=== PATIENT | female | born 1950 | race African-American/Black ===

== ENCOUNTER 2017-08-15 10:49 | Day surgery (SDC) | payer MEDICARE, MEDICAID ==
[2017-08-14 13:02] VITALS: BMI 34.9
[2017-08-15] MEDS ORDERED: Propofol 200 MG/20 ML VIAL ONE (13:14)
--- NOTE | 2017-08-15 17:58 | OP ---
DATE OF PROCEDURE: 08/15/2017 PROCEDURES PERFORMED: Esophagogastroduodenoscopy and colonoscopy. PREOPERATIVE DIAGNOSES: Anemia and history of colon polyps. SURGEON: Kuldeep Bergeorn M.D. OPERATIVE NOTE: Informed consent was obtained from the patient. She was sedated with total intrave nous anesthesia. The bite block was placed and the endoscope was advanced easily to the second port ion of the duodenum and retroflexion was performed in the stomach. The esophagus was normal. The G E junction was normal. The stomach was normal including retroflexed views. The pylorus and first a nd second portions of the duodenum were normal. The patient was turned around. Rectal exam was per formed and was normal. The colonoscope was advanced to the terminal ileum without difficulty. The mucosa of the terminal ileum was normal. The ileocecal valve and appendiceal orifice were clearly i dentified. The preparation quality was excellent. The colonic mucosa was normal throughout. Retro flexed views in the rectum were normal. IMPRESSION: 1. Normal esophagogastroduodenoscopy. 2. Normal colonoscopy. 3. Anemia. Her ferritin is over 300, which indicates that she does not have iron deficiency. Her folic acid was normal. Her B12 was previously normal. 4. History of hyperplastic polyps removed from the colon in the past. She has no polyps on today's exam. RECOMMENDATIONS: 1. Repeat colonoscopy in 10 years. 2. Follow up with Dr. Vergara for further evaluation of the anemia. 3. Follow up in GI clinic as needed.
== END 2017-08-15 14:30 | disposition home or self-care (01) ==
LOC: SDC 10:49
PROVIDERS: ATTEND Internal Medicine Gastroenterology
PROC: 0DJD8ZZ Inspection of Lower Intestinal Tract, Via Natural or Artificial Opening Endoscopic (ICD-10-PCS; principal; 2017-08-15)
PROC: 0DJ08ZZ Inspection of Upper Intestinal Tract, Via Natural or Artificial Opening Endoscopic (ICD-10-PCS; 2017-08-15)
DX: Z12.11 Encounter for screening for malignant neoplasm of colon (principal); D64.9 Anemia, unspecified; E11.9 Type 2 diabetes mellitus without complications; E03.9 Hypothyroidism, unspecified; K21.9 Gastro-esophageal reflux disease without esophagitis; M19.90 Unspecified osteoarthritis, unspecified site; E78.5 Hyperlipidemia, unspecified; F17.210 Nicotine dependence, cigarettes, uncomplicated; Z79.84 Long term (current) use of oral hypoglycemic drugs; Z79.899 Other long term (current) drug therapy; Z88.5 Allergy status to narcotic agent; Z87.19 Personal history of other diseases of the digestive system
CPT/HCPCS: 44376; G0105; J2704

== ENCOUNTER 2018-03-11 14:50 | Outpatient (CLI) | payer MEDICARE, MEDICAID | END 2018-03-11 14:51 | disposition home or self-care (01) | LOC: BICMAMMO 14:50 | PROVIDERS: ATTEND Specialist | DX: Z12.31 Encounter for screening mammogram for malignant neoplasm of breast (principal); Z79.899 Other long term (current) drug therapy | CPT/HCPCS: 77063; 77067 ==

== ENCOUNTER 2018-03-14 10:11 | Outpatient (CLI) | payer MEDICARE, MEDICAID | END 2018-03-14 10:12 | disposition home or self-care (01) | LOC: BICULT 10:11 | PROVIDERS: ATTEND Nurse Practitioner Family | DX: N83.201 Unspecified ovarian cyst, right side (principal); N83.202 Unspecified ovarian cyst, left side | CPT/HCPCS: 76856 ==

== ENCOUNTER 2018-04-08 13:48 | Outpatient (CLI) | payer MEDICARE, MEDICAID | END 2018-04-08 13:49 | disposition home or self-care (01) | LOC: BICULT 13:48 | PROVIDERS: ATTEND Otolaryngology Plastic Surgery within the Head & Neck | DX: E04.2 Nontoxic multinodular goiter (principal) | CPT/HCPCS: 76536 ==

== ENCOUNTER 2018-09-09 16:39 | Emergency (ER) | payer MEDICARE, MEDICAID | END 2018-09-09 17:08 | disposition home or self-care (01) | LOC: ERS 16:39 | DX: M62.838 Other muscle spasm (principal); E78.5 Hyperlipidemia, unspecified; E11.9 Type 2 diabetes mellitus without complications; E03.9 Hypothyroidism, unspecified; E66.9 Obesity, unspecified; K21.9 Gastro-esophageal reflux disease without esophagitis; Z87.891 Personal history of nicotine dependence; Z79.84 Long term (current) use of oral hypoglycemic drugs; Z79.899 Other long term (current) drug therapy | CPT/HCPCS: 99283 ==

== ENCOUNTER 2019-04-02 11:59 | Emergency (ER) | payer MEDICARE, MEDICAID | END 2019-04-02 12:35 | disposition home or self-care (01) | LOC: ERS 11:59 | DX: L25.9 Unspecified contact dermatitis, unspecified cause (principal); E78.5 Hyperlipidemia, unspecified; E66.9 Obesity, unspecified; E11.9 Type 2 diabetes mellitus without complications; E03.9 Hypothyroidism, unspecified; K21.9 Gastro-esophageal reflux disease without esophagitis; Z79.84 Long term (current) use of oral hypoglycemic drugs; Z79.899 Other long term (current) drug therapy; Z87.891 Personal history of nicotine dependence | CPT/HCPCS: 99282 ==

== ENCOUNTER 2019-11-20 10:55 | Outpatient (CLI) | payer MEDICARE, OTHER ==
--- NOTE | 2019-11-20 11:32 | MMO ---
Bilateral MAMMO Bilat Screen [facility]. CLINICAL HISTORY: Patient is 68 years old and is seen for screening. The patient has no family history of breast cancer. The patient has no personal history of cancer. VIEWS: The views performed were: bilateral craniocaudal with tomosynthesis; bilateral mediolateral oblique; and bilateral mediolateral oblique with tomosynthesis. FILMS COMPARED: The present examination has been compared to prior imaging studies performed at [facility] on 10/29/2014, 11/09/2015, 11/28/2016 and 03/11/2018. This study has been interpreted with the assistance of computer-aided detection. MAMMOGRAM FINDINGS: The breasts are almost entirely fat. There are no suspicious masses, suspicious calcifications, or new areas of architectural distortion. IMPRESSION: THERE IS NO MAMMOGRAPHIC EVIDENCE OF MALIGNANCY. A ROUTINE FOLLOW-UP MAMMOGRAM IN 1 YEAR IS RECOMMENDED. THE RESULTS OF THIS EXAM WERE SENT TO THE PATIENT. ACR BI-RADS Category 1 - Negative MAMMOGRAPHY NOTE: 1. A negative mammogram report should not delay a biopsy if a dominant of clinically suspicious mass is present. 2. Approximately 10% to 15% of breast cancers are not detected by mammography. 3. Adenosis and dense breasts may obscure an underlying neoplasm. Reported by: MARTINEZ BARRETO MD Electonically Signed: [id number]
== END 2019-11-20 10:56 | disposition home or self-care (01) ==
LOC: BICMAMMO 10:55
PROVIDERS: ATTEND Specialist
DX: Z12.31 Encounter for screening mammogram for malignant neoplasm of breast (principal)
CPT/HCPCS: 77063; 77067

== ENCOUNTER 2021-01-12 13:31 | Outpatient (CLI) | payer MEDICARE, OTHER, MEDICAID | END 2021-01-12 13:32 | disposition home or self-care (01) | LOC: BICMAMMO 13:31 | PROVIDERS: ATTEND Specialist | DX: Z12.31 Encounter for screening mammogram for malignant neoplasm of breast (principal); M81.0 Age-related osteoporosis without current pathological fracture; M85.852 Other specified disorders of bone density and structure, left thigh | CPT/HCPCS: 77063; 77067; 77080 ==

== ENCOUNTER 2022-11-22 16:38 | Emergency (ER) | payer MEDICARE, OTHER ==
[2022-11-22] MEDS ORDERED: Lidocaine Viscous Sol 2% 15 ml UD Cup ONE (17:31)
[2022-11-22] MEDS ORDERED: Mag-Al 1200 mg/1200 mg/30 ML UDCUP ONE (17:31)
== END 2022-11-22 18:15 | disposition home or self-care (01) ==
LOC: ERS 16:38
DX: K21.9 Gastro-esophageal reflux disease without esophagitis (principal); E78.00 Pure hypercholesterolemia, unspecified; E11.9 Type 2 diabetes mellitus without complications; E66.9 Obesity, unspecified; E03.9 Hypothyroidism, unspecified; Z87.891 Personal history of nicotine dependence
CPT/HCPCS: 99283

== ENCOUNTER 2023-05-28 13:31 | Outpatient (CLI) | payer OTHER | END 2023-05-28 13:32 | disposition home or self-care (01) | LOC: BICMAMMO 13:31 | PROVIDERS: ATTEND Specialist | DX: Z12.31 Encounter for screening mammogram for malignant neoplasm of breast (principal) | CPT/HCPCS: 77063; 77067 ==

== ENCOUNTER 2023-12-03 11:53 | Emergency (ER) | payer OTHER | END 2023-12-03 13:09 | disposition left against medical advice (07) | LOC: ERS 11:53 | DX: Z53.21 Procedure and treatment not carried out due to patient leaving prior to being seen by health care provider (principal) ==

== ENCOUNTER 2024-09-11 16:21 | Observation (INO) | payer OTHER ==
[2024-09-11 17:21] LABS: Troponin I Less than 0.010 ng/mL (< 0.028)
[2024-09-11 17:22] LABS: ALT (SGPT) 11 U/L (8-55); AST (SGOT) 20 U/L (5-34); Alkaline Phosphatase 129 U/L (40-110); Anion Gap 15 mmol/L (10-20); BUN (Urea Nitrogen) 22 mg/dL (9.8-20.1); Bilirubin, Total 0.5 mg/dL (0.2-1.2); Calc. Creatinine Clearance 0 mL/min (70-130); Calcium 10.3 mg/dL (7.8-10.44); Carbon Dioxide 22 mmol/L (23-31); Chloride 104 mmol/L (98-107); Estimated GFR 56; Globulin 4.7 g/dL (2.4-3.5); Glucose 112 mg/dL (83-110); Potassium 4.5 mmol/L (3.5-5.1); Protein, Total 8.7 g/dL (5.8-8.1); Sodium 136 mmol/L (136-145)
[2024-09-11 17:31] LABS: #Basophils 0.03 10x3/uL (0.0-0.2); %Basophils 0.3 % (0.0-1.0); %Eosinophils 3.5 % (0.0-10.0); %Lymphocytes 33.1 % (21.0-51.0); %Monocytes 8.2 % (0.0-10.0); %Neutrophils 54.6 % (42.0-75.0); Hematocrit 40.5 % (36.0-47.0); Hemoglobin 13.4 g/dL (12.0-16.0); Mean Corpuscular HGB CONC 33.1 g/dL (32.0-36.0); Mean Corpuscular Hemoglobin 29.4 pg (27.0-31.0); Mean Corpuscular Volume 88.8 fL (78.0-98.0); Mean Platelet Volume 11.1 fL (7.4-10.4); Platelet Count 285 10x3/uL (130-400); Red Blood Cell (RBC) Count 4.56 mill/uL (4.20-5.40)
[2024-09-11] MEDS ORDERED: Metoprolol Tartrate 5 MG (5 mL) VIAL ONE (19:24)
[2024-09-11 19:52] LABS: Magnesium 2.4 mg/dL (1.6-2.6)
[2024-09-11] MEDS ORDERED: Ondansetron PF 4 MG/2 ML Vial IVP PRN (21:25)
[2024-09-11] MEDS ORDERED: Acetaminophen 325 MG TAB PO PRN (21:25)
[2024-09-11] MEDS ORDERED: Dextrose 5% in Water 1,000 ML IV PRN (21:36)
[2024-09-11] MEDS ORDERED: Insulin Lispro 100 UNIT/ML 10 ML VIAL SC PRN ×2 (21:36)
[2024-09-11] MEDS ORDERED: Glucagon 1 MG/ML KIT IM PRN (21:36)
[2024-09-11] MEDS ORDERED: Dextrose 50% Abboject 50 ML SYRINGE SLOW IVP PRN (21:36)
[2024-09-12 00:27] VITALS: BMI 43.1
[2024-09-12] MEDS: hydrALAZINE 20 MG/ML VIAL SLOW IVP PRN (01:50)
[2024-09-12 05:06] LABS: #Basophils 0.05 10x3/uL (0.0-0.2); %Basophils 0.6 % (0.0-1.0); %Eosinophils 3.5 % (0.0-10.0); %Lymphocytes 28.7 % (21.0-51.0); %Monocytes 8.8 % (0.0-10.0); %Neutrophils 58.2 % (42.0-75.0); Hemoglobin 12.2 g/dL (12.0-16.0); Mean Corpuscular Hemoglobin 29.2 pg (27.0-31.0); Mean Corpuscular Volume 88.5 fL (78.0-98.0); Mean Platelet Volume 11.8 fL (7.4-10.4); Platelet Count 260 10x3/uL (130-400); Red Blood Cell (RBC) Count 4.18 mill/uL (4.20-5.40)
[2024-09-12 05:54] LABS: Anion Gap 13 mmol/L (10-20); BUN (Urea Nitrogen) 22 mg/dL (9.8-20.1); Calc. Creatinine Clearance 83 mL/min (70-130); Calcium 9.3 mg/dL (7.8-10.44); Carbon Dioxide 20 mmol/L (23-31); Chloride 110 mmol/L (98-107); Estimated GFR 63; Glucose 145 mg/dL (83-110); Magnesium 2.2 mg/dL (1.6-2.6); Potassium 3.5 mmol/L (3.5-5.1); Sodium 139 mmol/L (136-145)
[2024-09-12] MEDS: Levothyroxine Sodium 50 MCG TAB PO SCH (06:58)
[2024-09-12] MEDS: Dapagliflozin Propanediol 10 MG TAB PO SCH (08:54)
[2024-09-12] MEDS: Pantoprazole DR 40 MG TAB PO SCH (08:55)
[2024-09-12 11:45] VITALS: BP 142/63; TEMP 98
== END 2024-09-12 17:16 | disposition home or self-care (01) ==
LOC: ERS 16:21 → OBS 19:33
PROVIDERS: ADMIT Internal Medicine; ATTEND Internal Medicine
PROC: B246ZZZ Ultrasonography of Right and Left Heart (ICD-10-PCS; principal; 2024-09-11)
DX: R00.1 Bradycardia, unspecified (principal); I47.20 Ventricular tachycardia, unspecified; I10 Essential (primary) hypertension; E11.9 Type 2 diabetes mellitus without complications; E78.5 Hyperlipidemia, unspecified; E03.9 Hypothyroidism, unspecified; K21.9 Gastro-esophageal reflux disease without esophagitis; Z90.49 Acquired absence of other specified parts of digestive tract; Z87.59 Personal history of other complications of pregnancy, childbirth and the puerperium; Z79.890 Hormone replacement therapy; Z88.5 Allergy status to narcotic agent; Z79.899 Other long term (current) drug therapy; Z87.891 Personal history of nicotine dependence
CPT/HCPCS: 71045; 80048; 82962; 83735 ×2; 83880; 84484; 85025; 93005; 93306; 96374; 99285; J0360; 36415; 36416; 80053; 84443; 96375; G0378

== ENCOUNTER 2024-09-30 18:43 | Emergency (ER) | payer OTHER ==
[2024-09-30 20:29] LABS: Bilirubin Negative (Negative); Blood, Urine Negative (Negative); CAUTI Indications for Culture Alt mental st,lethar; Clarity Clear (Clear); Glucose, Urine (Dipstick) Greater than 1000 mg/dL (Negative); Ketone, Urine 10 mg/dL (Negative); Leukocyte 25 Leu/uL (Negative); Nitrite Negative (Negative); Protein, Urine (Dipstick) Negative (Neg-Trace); RBC/HPF 0-3 HPF (0-3); Specific Gravity, Urine 1.022 (1.002-1.036); Squamous Epithelial 0-3 HPF (0-3); Urobilinogen Normal mg/dL (Less than 2); WBC/HPF 0-3 HPF (0-3)
[2024-09-30 20:31] LABS: Bacteria/HPF Rare-Few HPF (None Seen)
[2024-09-30 20:32] LABS: Urine Culture Reflex No No
[2024-09-30 20:42] LABS: #Basophils 0.04 10x3/uL (0.0-0.2); %Basophils 0.5 % (0.0-1.0); %Eosinophils 1.9 % (0.0-10.0); %Lymphocytes 23.2 % (21.0-51.0); %Monocytes 8.6 % (0.0-10.0); %Neutrophils 65.7 % (42.0-75.0); Hematocrit 40.6 % (36.0-47.0); Hemoglobin 13.2 g/dL (12.0-16.0); Mean Corpuscular HGB CONC 32.5 g/dL (32.0-36.0); Mean Corpuscular Hemoglobin 29.6 pg (27.0-31.0); Mean Platelet Volume 11.7 fL (7.4-10.4); Platelet Count 249 10x3/uL (130-400); RBC Distribution Width 13.7 % (11.5-14.5); Red Blood Cell (RBC) Count 4.46 mill/uL (4.20-5.40)
[2024-09-30 20:59] LABS: ALT (SGPT) 12 U/L (8-55); AST (SGOT) 19 U/L (5-34); Albumin 3.6 g/dL (3.4-4.8); Alkaline Phosphatase 109 U/L (40-110); Anion Gap 16 mmol/L (10-20); BUN (Urea Nitrogen) 16 mg/dL (9.8-20.1); Bilirubin, Total 0.5 mg/dL (0.2-1.2); Calc. Creatinine Clearance 0 mL/min (70-130); Carbon Dioxide 22 mmol/L (23-31); Chloride 106 mmol/L (98-107); Estimated GFR 67; Globulin 4.3 g/dL (2.4-3.5); Glucose 107 mg/dL (83-110); Potassium 3.9 mmol/L (3.5-5.1); Protein, Total 7.9 g/dL (5.8-8.1); Sodium 140 mmol/L (136-145)
[2024-09-30 21:02] LABS: Troponin I Less than 0.010 ng/mL (< 0.028)
== END 2024-09-30 21:56 | disposition home or self-care (01) ==
LOC: ERS 18:43
DX: R42 Dizziness and giddiness (principal); I10 Essential (primary) hypertension; E11.9 Type 2 diabetes mellitus without complications; E78.00 Pure hypercholesterolemia, unspecified; E03.9 Hypothyroidism, unspecified; K21.9 Gastro-esophageal reflux disease without esophagitis; Z55.0 Illiteracy and low-level literacy; Z87.891 Personal history of nicotine dependence; Z79.899 Other long term (current) drug therapy
CPT/HCPCS: 36415; 80053; 81001; 84443; 84484; 85025; 93005; 99284

== ENCOUNTER 2024-10-02 16:16 | Inpatient (IN) | payer OTHER ==
[2024-10-02 17:32] LABS: #Basophils 0.05 10x3/uL (0.0-0.2); %Basophils 0.7 % (0.0-1.0); %Lymphocytes 24.5 % (21.0-51.0); %Monocytes 8.2 % (0.0-10.0); %Neutrophils 63.3 % (42.0-75.0); Hematocrit 40.7 % (36.0-47.0); Hemoglobin 13.1 g/dL (12.0-16.0); Mean Corpuscular HGB CONC 32.2 g/dL (32.0-36.0); Mean Corpuscular Hemoglobin 29.6 pg (27.0-31.0); Mean Corpuscular Volume 91.9 fL (78.0-98.0); Platelet Count 263 10x3/uL (130-400); RBC Distribution Width 13.8 % (11.5-14.5); Red Blood Cell (RBC) Count 4.43 mill/uL (4.20-5.40)
[2024-10-02 17:39] LABS: ALT (SGPT) 12 U/L (8-55); AST (SGOT) 17 U/L (5-34); Albumin 3.6 g/dL (3.4-4.8); Alkaline Phosphatase 102 U/L (40-110); Anion Gap 14 mmol/L (10-20); BUN (Urea Nitrogen) 19 mg/dL (9.8-20.1); Bilirubin, Total 0.4 mg/dL (0.2-1.2); Calc. Creatinine Clearance 0 mL/min (70-130); Calcium 9.8 mg/dL (7.8-10.44); Carbon Dioxide 21 mmol/L (23-31); Chloride 110 mmol/L (98-107); Estimated GFR 65; Globulin 4.1 g/dL (2.4-3.5); Glucose 113 mg/dL (83-110); Potassium 3.6 mmol/L (3.5-5.1); Protein, Total 7.7 g/dL (5.8-8.1); Sodium 141 mmol/L (136-145)
[2024-10-02 17:43] LABS: Troponin I Less than 0.010 ng/mL (< 0.028)
[2024-10-02] MEDS ORDERED: Calcium Carbonate 500 MG ChewTAB PO PRN (19:55)
[2024-10-02] MEDS ORDERED: hydrALAZINE 20 MG/ML VIAL SLOW IVP PRN (19:55)
[2024-10-02] MEDS ORDERED: Acetaminophen 325 MG TAB PO PRN (19:55)
[2024-10-02] MEDS ORDERED: Ondansetron PF 4 MG/2 ML Vial IVP PRN (19:55)
[2024-10-02] MEDS ORDERED: Senokot S 8.6-50 MG TAB PO PRN (19:55)
[2024-10-02] MEDS ORDERED: Glucagon 1 MG/ML KIT IM PRN (20:03)
[2024-10-02] MEDS ORDERED: Insulin Lispro 100 UNIT/ML 10 ML VIAL SC PRN ×2 (20:03)
[2024-10-02] MEDS ORDERED: Dextrose 50% Abboject 50 ML SYRINGE SLOW IVP PRN (20:03)
[2024-10-02] MEDS ORDERED: Dextrose 5% in Water 1,000 ML IV PRN (20:03)
[2024-10-02 23:12] LABS: Troponin I Less than 0.010 ng/mL (< 0.028)
[2024-10-03 00:10] VITALS: BMI 47.1
[2024-10-03] MEDS: Atorvastatin Calcium 40 MG TAB PO SCH (01:44)
[2024-10-03] MEDS: traMADol HCl 50 MG TAB PO SCH (01:44)
[2024-10-03 01:46] LABS: Troponin I 0.018 ng/mL (< 0.028)
[2024-10-03 04:36] LABS: #Basophils 0.04 10x3/uL (0.0-0.2); %Basophils 0.5 % (0.0-1.0); %Eosinophils 3.7 % (0.0-10.0); %Lymphocytes 26.7 % (21.0-51.0); %Monocytes 8.4 % (0.0-10.0); %Neutrophils 60.4 % (42.0-75.0); Mean Corpuscular HGB CONC 32.4 g/dL (32.0-36.0); Mean Corpuscular Hemoglobin 29.3 pg (27.0-31.0); Mean Corpuscular Volume 90.2 fL (78.0-98.0); Mean Platelet Volume 11.3 fL (7.4-10.4); Platelet Count 256 10x3/uL (130-400); RBC Distribution Width 13.6 % (11.5-14.5)
[2024-10-03 04:56] LABS: ALT (SGPT) 10 U/L (8-55); AST (SGOT) 16 U/L (5-34); Albumin 3.2 g/dL (3.4-4.8); Alkaline Phosphatase 91 U/L (40-110); Anion Gap 11 mmol/L (10-20); BUN (Urea Nitrogen) 18 mg/dL (9.8-20.1); Bilirubin, Total 0.4 mg/dL (0.2-1.2); Calc. Creatinine Clearance 89 mL/min (70-130); Calcium 9.4 mg/dL (7.8-10.44); Carbon Dioxide 23 mmol/L (23-31); Cardiac Risk 2.2 (Less than 4.5); Chloride 110 mmol/L (98-107); Cholesterol 158 mg/dl (< 200 Desired); Estimated GFR 71; Globulin 3.5 g/dL (2.4-3.5); Glucose 99 mg/dL (83-110); HDL Cholesterol 71 mg/dL (>60 Neg Risk); Hemoglobin A1c 6.5 % (4.0-6.0); LDL Cholesterol, Calculated 69 mg/dL; Potassium 3.4 mmol/L (3.5-5.1); Protein, Total 6.7 g/dL (5.8-8.1); Sodium 141 mmol/L (136-145); Triglycerides 90 mg/dL (Less than 150)
[2024-10-03] MEDS: Levothyroxine Sodium 50 MCG TAB PO SCH (06:24)
[2024-10-03] MEDS: Pantoprazole DR 40 MG TAB PO SCH (08:53)
[2024-10-03] MEDS: Aspirin 81 mg Enteric Coated Tablet PO SCH (08:53)
[2024-10-03] MEDS: Enoxaparin 40 MG (0.4 mL) SYRINGE SC SCH (08:53)
[2024-10-03] MEDS: Dapagliflozin Propanediol 10 MG TAB PO SCH (08:53)
[2024-10-03] MEDS ORDERED: Regadenoson 0.4 MG/5 ML SYRINGE ONE (10:17)
[2024-10-03] MEDS: Amlodipine 10 MG TAB PO SCH (17:02)
[2024-10-04 08:26] LABS: Anion Gap 15 mmol/L (10-20); BUN (Urea Nitrogen) 13 mg/dL (9.8-20.1); Calc. Creatinine Clearance 88 mL/min (70-130); Calcium 9.9 mg/dL (7.8-10.44); Carbon Dioxide 22 mmol/L (23-31); Chloride 108 mmol/L (98-107); Estimated GFR 70; Glucose 121 mg/dL (83-110); Potassium 3.5 mmol/L (3.5-5.1); Sodium 141 mmol/L (136-145)
[2024-10-04] MEDS: Spironolactone 25 MG TAB PO SCH (11:59)
[2024-10-04] MEDS: Amlodipine 10 MG TAB PO SCH (11:59)
[2024-10-04] MEDS: Loratadine 10 MG TAB PO SCH (21:19)
[2024-10-04] MEDS: Meclizine HCl 25 MG TAB PO PRN (21:19)
[2024-10-04] MEDS: Fluticasone Propionate Nasal Spray 16 gm Bottle NASAL SCH (21:24)
[2024-10-05 11:34] VITALS: BP 165/75; TEMP 98
== END 2024-10-05 13:54 | disposition home or self-care (01) | DRG 149 ==
LOC: ERS 16:16 → SUATTDRO 16:16 → 2SE 19:50 → OBSVTOIN 10-03 18:50
PROVIDERS: ADMIT Internal Medicine; ATTEND Student in an Organized Health Care Education/Training Program
DX: R42 Dizziness and giddiness (principal); I16.1 Hypertensive emergency; I10 Essential (primary) hypertension; E11.9 Type 2 diabetes mellitus without complications; E78.5 Hyperlipidemia, unspecified; E03.9 Hypothyroidism, unspecified; Z88.8 Allergy status to other drugs, medicaments and biological substances; Z79.899 Other long term (current) drug therapy; T46.5X5A Adverse effect of other antihypertensive drugs, initial encounter; K21.9 Gastro-esophageal reflux disease without esophagitis; Z79.82 Long term (current) use of aspirin
CPT/HCPCS: 36415; 36416; 70450; 71045; 78452; 80048; 80053; 80061; 81001; 83036; 83735; 84443; 84484; 85025; 93005; 93017; 96372; 99284; A9502; G0378; J1650; J2785